=== PATIENT | female | born 1965 | race Two or more races ===

== ENCOUNTER → 2017-06-03 | Outpatient (CLI) | payer OTHER | LOC: CIMAGING 13:41 | PROVIDERS: ATTEND Physical Medicine & Rehabilitation | DX: M17.11 Unilateral primary osteoarthritis, right knee (principal) | CPT/HCPCS: 73564-PO ==

== ENCOUNTER → 2017-10-14 | Outpatient (CLI) | payer OTHER | LOC: FIMAGING 13:59 | PROVIDERS: ATTEND Family Medicine | DX: Z12.31 Encounter for screening mammogram for malignant neoplasm of breast (principal); R92.1 Mammographic calcification found on diagnostic imaging of breast | CPT/HCPCS: G0202 ==

== ENCOUNTER → 2017-10-27 | Outpatient (CLI) | payer OTHER | LOC: FIMAGING 12:40 | PROVIDERS: ATTEND Family Medicine | DX: R92.8 Other abnormal and inconclusive findings on diagnostic imaging of breast (principal) ==

== ENCOUNTER → 2017-12-26 | Outpatient (CLI) | payer OTHER | LOC: FIMAGING 11:39 | PROVIDERS: ATTEND Orthopaedic Surgery | DX: M67.972 Unspecified disorder of synovium and tendon, left ankle and foot (principal); S86.312A Strain of muscle(s) and tendon(s) of peroneal muscle group at lower leg level, left leg, initial encounter ==

== ENCOUNTER 2018-01-19 10:57 | Day surgery (SDC) | payer OTHER ==
[~2018-01-19 10:57] MED LIST: ceFAZolin 2 GM/SWFI 2 GM/20 ML SYR IVP ONE
[2018-01-19] MEDS ORDERED: LR 1,000 ML IV ONE (11:21)
[2018-01-19] MEDS ORDERED: LIDOCAINE 1% 2 ML INJ ID PRN (11:21)
[2018-01-19 11:44] VITALS: PULSE 68
[2018-01-19] MEDS ORDERED: ceFAZolin 2 GM/SWFI 20 ML SYR IVP ONE (11:46)
--- NOTE | 2018-01-19 12:18 | PDHPUP ---
History & Physical Update H&P update statement: This history and physical update is based on an assessment of the patient which was completed after admission or registration (within 24 hours), but prior to the surgery/procedure. H&P update: H&P reviewed & patient examined, no change in patient's condition since H&P completed
[2018-01-19] MEDS ORDERED: BUPIVACAINE 0.5% 30 ML SDV ONE (12:24)
[2018-01-19] MEDS ORDERED: MIDAZOLAM 2 MG/2 ML VIAL IVP ONE (12:36)
[2018-01-19] MEDS ORDERED: MIDAZOLAM 2 MG/2 ML VIAL ONE (12:38)
[2018-01-19] MEDS ORDERED: LIDOCAINE 2% JELLY 5 ML TUBE ONE (12:44)
[2018-01-19] MEDS ORDERED: ONDANSETRON 4 MG/2 ML VIAL ONE (12:44)
[2018-01-19] MEDS ORDERED: PROPOFOL/EMULSION 500 MG/50 ML BOTTLE IV ONE (12:44)
[2018-01-19] MEDS ORDERED: DEXAMETHASONE 4 MG/ML VIAL ONE ×2 (12:44)
[2018-01-19] MEDS ORDERED: fentaNYL 100 MCG/2 ML INJ ONE (12:44)
--- NOTE | 2018-01-19 13:15 | PDANEPAE ---
ANE History of Present Illness peroneal tendon transfer ANE Past Medical History - Cardiovascular History Hx Hypertension: Yes Hx Arrhythmias: No Hx Chest Pain: No Hx Coronary Artery / Peripheral Vascular Disease: No Hx CHF / Valvular Disease: No Hx Palpitations: No - Pulmonary History Hx COPD: No Hx Asthma/Reactive Airway Disease: No Hx Recent Upper Respiratory Infection: No Hx Oxygen in Use at Home: No Hx Sleep Apnea: No Sleep Apnea Screening Result - Last Documented: Negative - Neurologic History Hx Cerebrovascular Accident: No Hx Seizures: No Hx Dementia: No - Endocrine History Hx Diabetes: Yes Endocrine History Comment: pt states per-diabetic, normal HgBA1C - Renal History Hx Renal Disorders: No - Liver History Hx Hepatic Disorders: Yes Hepatic History Comment: fatty liver - Neurological & Psychiatric Hx Hx Neurological and Psychiatric Disorders: No - Cancer History Hx Cancer: No - Congenital Disorder History Hx Congenital Disorders: No - GI History Hx Gastrointestinal Disorders: Yes Gastrointestinal History Comment: heartburn - Other Health History Other Health History: bottom removable bridge - Chronic Pain History Chronic Pain: No - Surgical History Prior Surgeries: hysterectomy,. . susan CERVANTES Review of Systems Review of Systems: - Exercise capacity METS (RN): 4 METS ANE Patient History - Allergies Allergies/Adverse Reactions: No Known Allergies Allergy (Verified 01/13/18 15:49) - Home Medications Home medications: home medication list seen and reviewed Home Medications: Caltrate+D3 Plus Mineral Minis 01/13/18 [Last Taken 01/14/18] Cholecalciferol (Vitamin D3) 01/13/18 [Last Taken 01/14/18] Herbals/Supplements -Info Only 01/13/18 [Last Taken 01/14/18] Hydrochlorothiazide 01/13/18 [Last Taken 01/15/18] amLODIPine BESYLATE [Norvasc] 01/13/18 [Last Taken 01/19/18 07:30] - NPO status NPO Status: no food or drink >8 hours NPO Since - Liquids (Date): 01/18/18 NPO Since - Liquids (Time): 22:00 NPO Since - Solids (Date): 01/18/18 NPO Since - Solids (Time): 18:30 - Smoking Hx Smoking Status: Never smoked - Family Anes Hx Family Hx Anesthesia Complications: none ANE Labs/Vital Signs - Vital Signs Blood Pressure: 136/80 Heart Rate: 68 Respiratory Rate: 18 O2 Sat (%): 97 Height: 157.48 cm Weight: 82.554 kg ANE Physical Exam - Airway Neck exam: decreased ROM Mallampati Score: Class 2 Mouth exam: normal dental/mouth exam - Pulmonary Pulmonary: no respiratory distress - Cardiovascular Cardiovascular: regular rate and rhythym - ASA Status ASA Status: II ANE Anesthesia Plan Anesthesia Plan: general endotracheal anesthesia Regional Anesthesia: popliteal SNB (psr popr) Urgent/Emergent Case: Chioma pérez completed preop but documented later for safe timely pt care
--- NOTE | 2018-01-19 13:57 | POSTOPPROG ---
Post Op Note Date of Operation: 01/19/18 Surgeon: Juan Manuel Cavanaugh Sales Planning Manager: [place] Anesthesiologist: Samir Anesthesia: GET(General Endotracheal) Pre-op Diagnosis: L peroneal tendinitis Post-op Diagnosis: same Indication: above Procedure: Left peroneal debridement,longus to brevis transfer Inf/Abcess present in the surg proc area at time of surgery?: No EBL: Minimal
[2018-01-19] MEDS ORDERED: PHENYLEPHRINE HCL 100 MCG/ML SYR IVP PRN (14:14)
[2018-01-19] MEDS ORDERED: ALBUTEROL 3 ML DEYVIAL IH PRN (14:14)
[2018-01-19] MEDS ORDERED: oxyCODONE IR 5 MG TAB PO PRN (14:14)
[2018-01-19] MEDS ORDERED: METOCLOPRAMIDE 10 MG/2 ML VIAL IVP PRN (14:14)
[2018-01-19] MEDS ORDERED: fentaNYL 100 MCG/2 ML INJ IVP PRN (14:14)
[2018-01-19] MEDS ORDERED: ONDANSETRON 4 MG/2 ML VIAL IVP PRN (14:14)
[2018-01-19] MEDS ORDERED: HYDROCODONE/APAP 5/325 TAB PO PRN (14:14)
[2018-01-19] MEDS ORDERED: DEXAMETHASONE 4 MG/ML VIAL IVP PRN (14:14)
[2018-01-19] MEDS ORDERED: PROMETHAZINE HCL 25 MG/ML INJ IVP PRN (14:14)
[2018-01-19] MEDS ORDERED: MEPERIDINE 25 MG/ML SYR IVP PRN (14:14)
[2018-01-19] MEDS ORDERED: NALOXONE HCL 0.4 MG/ML INJ IVP PRN (14:14)
[2018-01-19] MEDS ORDERED: ACETAMINOPHEN 500 MG TAB PO PRN (14:14)
[2018-01-19] MEDS ORDERED: LABETALOL HCL 5 MG/ML 20 ML MDV IVP PRN (14:14)
[2018-01-19] MEDS ORDERED: LR 500 ML IV PRN (14:14)
--- NOTE | 2018-01-19 14:16 | POSTANESTH ---
Post Anesthetic Evaluation Cardiovascular Status: Normal, Stable Respiratory Status: Normal, Stable Level of Consciousness/Mental Status: Can Participate in Eval Pain Control: Adequate, Prn Tx Ordered Nausea/Vomiting Control: Adequate, Prn Tx Ordered Complications Possibly Related to Anesthesia: None Noted
[2018-01-19 15:55] VITALS: BP 123/78; O2SAT 91
[2018-01-19 15:57] VITALS: RESP 15; TEMP 97.5
--- NOTE | 2018-01-20 01:05 | GOP ---
[f rep st] OPERATIVE REPORT DATE OF OPERATION: 01/19/2018 SURGEON: Juan Manuel Cavanaugh MD AUTOMATIC PAD MAKING MACHINE OPERATOR: Saad Coleman SA ANESTHESIA: General with a popliteal block. PREOPERATIVE DIAGNOSIS: 1. Left peroneal tendinitis. 2. Symptomatic os peroneum. 3. Peroneus longus tear. POSTOPERATIVE DIAGNOSIS: 1. Left peroneal tendinitis. 2. Symptomatic os peroneum. 3. Peroneus longus tear. PROCEDURE PERFORMED: 1. Left peroneal debridement of longus and brevis tendon. 2. Peroneus longus to brevis tendon transfer. 3. Resection of os peroneum and os subfibulare. FINDINGS: SPECIMENS: None. ESTIMATED BLOOD LOSS: Blood loss 5 mL. INDICATIONS: This is a 52-year-old female with symptomatic peroneal tendon tears, tendinitis, and im pingement from her os peroneum and os subfibulare. She failed conservative management and elected fo r surgical intervention. We discussed risks of nerve injury, continued pain, nonunion, malunion, weakness, failure of the pedroza sfer, need for further surgery, nerve injury, blood clot, systemic complications. She elected to pro ceed. Informed consent obtained. All questions answered. She was marked preoperatively. DESCRIPTION OF PROCEDURE: She was taken to the operative suite. Anesthesia was induced. She was gi kael a block and 2 g Ancef. Sterilely prepped and draped in the normal fashion. Time-out was perform ed verifying site, side, location, with agreement of the team. I made an incision over the course of the peroneal tendons. Dissected down, cauterizing veins as nee ded, protecting neurovascular structures. Opened up the peroneal sheath. She had significant tenosy novitis of both peroneals and fluid. This was debrided and removed. She had significant tearing and degeneration of the peroneus longus distally and os peroneum which was resected. I resected the rid ge of the calcaneus as well which was quite prominent as well as an os subfibulare. The 2 of these w ere impinging on each other. When I got done, she had no impingement with motion. I placed bone wax on these and created smooth s urfaces. I then performed an anastomosis from the longus to the brevis under appropriate tension wit h 0 FiberWire. This moved nicely as one unit. Tested this. I then irrigated this, closed with #1 V icryl sheath, 2-0 Vicryl, and 3-0 Quill in the skin and Dermabond. She was placed in sterile dressings, a splint, and taken to the PACU in stable condition. COMPLICATIONS: None. DRAINS: None. CONDITION: Stable. /[id number]/MODL
== END 2018-01-19 15:45 | disposition home or self-care (01) ==
LOC: FSGY 10:57
PROVIDERS: ATTEND Orthopaedic Surgery
PROC: 0LBW0ZZ Excision of Left Foot Tendon, Open Approach (ICD-10-PCS; principal; 2018-01-19 12:30)
PROC: 0LXP0ZZ Transfer Left Lower Leg Tendon, Open Approach (ICD-10-PCS; principal; 2018-01-19 12:30)
DX: M76.72 Peroneal tendinitis, left leg (principal); M89.8X7 Other specified disorders of bone, ankle and foot; S86.312A Strain of muscle(s) and tendon(s) of peroneal muscle group at lower leg level, left leg, initial encounter
CPT/HCPCS: J0690; J1100; J2250; J2405; J2704; J3010

== ENCOUNTER → 2018-08-20 | Outpatient (CLI) | payer OTHER | LOC: FIMAGING 12:58 | PROVIDERS: ATTEND Family Medicine | DX: R92.0 Mammographic microcalcification found on diagnostic imaging of breast (principal) ==

== ENCOUNTER → 2018-12-16 | Outpatient (CLI) | payer OTHER | LOC: FIMAGING 08:25 | PROVIDERS: ATTEND Family Medicine | DX: R74.0 Nonspecific elevation of levels of transaminase and lactic acid dehydrogenase [LDH] (principal); E80.6 Other disorders of bilirubin metabolism; K76.0 Fatty (change of) liver, not elsewhere classified ==

== ENCOUNTER 2019-03-01 12:36 | Day surgery (SDC) | payer OTHER ==
[2019-03-01] MEDS ORDERED: LR 1,000 ML IV ONE (12:56)
--- NOTE | 2019-03-01 13:35 | PDPROPOC ---
Sedation Plan of Care Sedation Plan of Care: vital signs stable, mental status noted, patient educated of risks, benefits, alternatives, patient can tolerate sedation ASA Classification: ASA 2 Planned drugs: fentanyl, midazolam Mallampati Score: Class 1 Mallampati Reference Image: Patient passed 3-3-2 rule?: Yes
--- NOTE | 2019-03-01 13:35 | PDGENHP ---
History & Physical Chief Complaint: phx polyps History of Present Illness: phx polyp removed in piecemeal Pertinent Past, Social, Family History: tobacco none, alcohol rare. FHx - no colon cancer, no colon ployp. HTN Relevant Physical Exam: A+Ox3. CTA. S1S2, RRR. +BS soft nt Cardiorespiratory Assessment: class II
[2019-03-01] MEDS ORDERED: MIDAZOLAM 2 MG/2 ML VIAL ONE (14:51)
[2019-03-01] MEDS ORDERED: fentaNYL 100 MCG/2 ML INJ ONE (14:51)
[2019-03-01] MEDS ORDERED: MIDAZOLAM 2 MG/2 ML VIAL IVP ONE (15:37)
[2019-03-01] MEDS ORDERED: fentaNYL 100 MCG/2 ML INJ IVP ONE (15:37)
[2019-03-01 15:48] VITALS: BP 105/68
--- NOTE | 2019-03-01 16:01 | GIREPORT ---
[facility] - Endoscopy Department Patient Name: Michelle Mnacilla Procedure Date: 03/01/2019 2:48 PM Patient Type: Outpatient Attending MD/ ER Physician: Arnold Magana MD Procedure: Colonoscopy Indications: Surveillance: Piecemeal removal of large sessile adenoma last colonosco py (< 3 yrs), High risk colon cancer surveillance: Personal history of adenom a with villous component Providers: Arnold Magana MD Referring MD: Francia Hernández MD Medicines: Fentanyl 100 micrograms IV, Midazolam 6 mg IV Complications: No immediate complications. Estimated blood loss: Minimal. Description of Procedure: After obtaining informed consent, the scope was passed under direct vis ion. Throughout the procedure, the patient's blood pressure, pulse, and oxyg en saturations were monitored continuously. The Colonoscope with irrigatio n channel was introduced through the anus and advanced to the terminal il eum, with identification of the appendiceal orifice and IC valve. The colono scopy was performed without difficulty. The patient tolerated the procedure w ell. The quality of the bowel preparation was good. Findings: The digital rectal exam was normal. The terminal ileum appeared normal. Three sessile polyps were found in the ascending colon. The polyps were 2 to 4 mm in size. These polyps were removed with a piecemeal technique usin g a cold biopsy forceps. Resection and retrieval were complete. Estimated b lood loss was minimal. A 3 mm polyp was found in the descending colon. The polyp was sessile. The polyp was removed with a piecemeal technique using a cold biopsy forcep s. Resection and retrieval were complete. Estimated blood loss was minimal . A 2 mm polyp was found in the rectum. The polyp was sessile. The polyp was removed with a cold biopsy forceps. Resection and retrieval were comple te. Estimated blood loss was minimal. Multiple small and large-mouthed diverticula were found in the sigmoid colon, descending colon, transverse colon and ascending colon. The exam was otherwise without abnormality. Estimated Blood Loss: Estimated blood loss was minimal. Post Op Diagnosis: - The examined portion of the ileum was normal. - Difficult to see previous polypectomy site and Mariela Ink. - Three 2 to 4 mm polyps in the ascending colon, removed piecemeal usin g a cold biopsy forceps. Resected and retrieved. - One 3 mm polyp in the descending colon, removed piecemeal using a col d biopsy forceps. Resected and retrieved. - One 2 mm polyp in the rectum, removed with a cold biopsy forceps. Res ected and retrieved. - Diverticulosis in the sigmoid colon, in the descending colon, in the transverse colon and in the ascending colon. - The examination was otherwise normal. Recommendation: - Await pathology results. - My office will call with the pathology result with 5-7 days. If you h ave not heard from my office by 12-14, do not assume the pathology is cher l, please call [phone] to get the pathology results. - Repeat colonoscopy in 2 years for surveillance. - High fiber diet indefinitely. - 30-35 grams of dietary fiber per day. Can use supplemental fiber. - A high fiber diet may decrease risk of complications from diverticulo sis. There is no need to avoid seeds or nuts. - Since she had a advanced polyp (villous pathology and > 1 cm) all fir st degree relative should have screening colonoscopy starting at age 40 - Patient has a contact number available for emergencies. The signs and symptoms of potential delayed complications were discussed with the pat ient. Return to normal activities tomorrow. Written discharge instructions we re provided to the patient. - Continue present medications. - Discharge patient to home (ambulatory). - Return to primary care physician as previously scheduled. - Thank you for allowing me to help in your patient's care. Do not hesi monroe to call with any questions. Attending Participation: I personally performed the entire procedure. Chino Mcmahon M.D Arnold Magana MD 03/01/2019 4:00:53 PM This report has been signed electronicallyMatthew MD [place] Number of Addenda: 0 Note Initiated On: 03/01/2019 2:48 PM Total Procedure Duration Time 0 hours 25 minutes 35 seconds [email or web address]
== END 2019-03-01 16:24 | disposition home or self-care (01) ==
LOC: FSGY 12:36
PROVIDERS: ATTEND Internal Medicine Gastroenterology
DX: Z12.11 Encounter for screening for malignant neoplasm of colon (principal); D12.2 Benign neoplasm of ascending colon; D12.4 Benign neoplasm of descending colon; D12.8 Benign neoplasm of rectum; Z86.010 Personal history of colon polyps; K57.30 Diverticulosis of large intestine without perforation or abscess without bleeding
CPT/HCPCS: J2250; J3010